=== PATIENT | female | born 1950 | race Caucasian/White ===

== ENCOUNTER → 2016-11-12 | Outpatient (REF) | payer OTHER | LOC: M LAB REF 16:37 | PROVIDERS: ATTEND Obstetrics & Gynecology | DX: R39.89 Other symptoms and signs involving the genitourinary system (principal); R10.31 Right lower quadrant pain ==

== ENCOUNTER → 2016-12-16 | Outpatient (CLI) | payer OTHER, BC ==
[2016-12-16 09:31] LABS: MEAN CORPUSCULAR HEMOGLOBIN 31.4 pg (27.0-33.0); MEAN CORPUSCULAR HGB CONC 33.3 g/dl (32.0-36.5); MEAN CORPUSCULAR VOLUME 94.3 fl (80.0-96.0); WHITE BLOOD COUNT 2.6 K/mm3 (4.0-10.0)
[2016-12-16 09:49] LABS: ALBUMIN 3.9 GM/DL (3.2-5.2); ALBUMIN/GLOBULIN RATIO 1.26 (1.00-1.93); ALKALINE PHOSPHATASE 53 U/L (45-117); ALT/SGPT 41 U/L (12-78); ANION GAP 9 MEQ/L (8-16); AST/SGOT 29 U/L (15-37); BILIRUBIN,TOTAL 0.5 MG/DL (0.2-1.0); BLOOD UREA NITROGEN 17 MG/DL (7-18); CALCIUM LEVEL 9.1 MG/DL (8.8-10.2); CARBON DIOXIDE LEVEL 28 MEQ/L (21-32); CHLORIDE LEVEL 108 MEQ/L (98-107); CHOLESTEROL LEVEL 212 MG/DL (<200); CREATININE FOR GFR 0.83 MG/DL (0.55-1.02); FREE T4 1.17 NG/DL (0.76-1.46); GLOMERULAR FILTRATION RATE > 60.0 (>45); GLUCOSE, FASTING 77 MG/DL (80-110); POTASSIUM SERUM 4.6 MEQ/L (3.5-5.1); SODIUM LEVEL 145 MEQ/L (136-145); TRIGLYCERIDES LEVEL 51 MG/DL (<150)
== END ==
LOC: M LAB 07:45
PROVIDERS: ATTEND Family Medicine
DX: Z00.00 Encounter for general adult medical examination without abnormal findings (principal)

== ENCOUNTER → 2018-12-24 | Outpatient (CLI) | payer MEDICARE, BC, OTHER ==
--- NOTE | 2018-12-25 09:58 | REP ---
MRI LEFT HIP: TECHNIQUE: Coronal T1, STIR through the pelvis, T2 fat sat, left hip all three planes, axial oblique proton density fat sat left hip. Visualized osseous structures demonstrate normal bone marrow signal. There is no bone marrow edema or occult fracture. There is no evidence of avascular necrosis. I do not see evidence of a labral tear. There is a moderate joint effusion. There is mild to moderate diffuse chondromalacia at the hip joint. Surrounding soft tissue structures demonstrate no abnormality. No abnormal signal is seen along the trochanters. Visualized intrapelvic structures demonstrate sigmoid diverticulosis, without definite diverticulitis. IMPRESSION: Mild to moderate chondromalacia at the hip joint with moderate joint effusion. I do not see evidence of a labral tear. No underlying osseous abnormality. Electronically Signed by Ramon Morales MD 12/27/2018 11:38 A
--- NOTE | 2018-12-25 09:59 | REP ---
MR LUMBAR SPINE WITHOUT CONTRAST: HISTORY: Left hip osteoarthritis. Decreased signal intensity on T2-weighted images is present in the lumbar intervertebral discs. The disc are decreased in height. These findings have been consistent with disc degeneration. A diffuse disc bulge is present at the L1-2 level. There is minimal compression of the thecal sac. There is hypertrophy of the posterior articulating facets. The L1 nerves exit the neural foramina without compression. A diffuse disc bulge is present at the L2-3 level. There is hypertrophy of the ligamenta flava and posterior articulating facets. There are 3 mm of grade 1 spondylolisthesis of L2 on L3. These findings produce moderate central canal stenosis. The L2 nerves exit the neural foramina without compression. A diffuse disc bulge is present at the L3-4 level. There is hypertrophy of the ligamenta flava and posterior articulating facets. These findings produce severe central canal stenosis. The L3 nerves exit the neural foramina without compression. A diffuse disc bulge is present at the L4-5 level. There is hypertrophy of the ligamenta flava and posterior articulating facets. These findings produce severe central canal stenosis. The L4 nerves exit the neural foramina without compression. A diffuse disc bulge is present at the L5-S1 level. This abuts the thecal sac. There is hypertrophy of the posterior articulating facets. The L5 nerves exit the neural foramina without compression. The conus medullaris is normal in appearance terminating at the level of the T12 vertebral body. Normal signal intensity is present in the lumbar vertebral bodies. IMPRESSION: 1. Diffuse disc bulge at the L1-2 level with minimal thecal sac compression. 2. Moderate central canal stenosis at the L2-3 level secondary to disc bulge, ligamentous and facet hypertrophy and grade 1 spondylolisthesis. 3. Severe central canal stenosis at the L3-4 level secondary to disc bulge, ligamentous and facet hypertrophy. 4. Severe central canal stenosis at the L4-5 level secondary to disc bulge, ligamentous and facet hypertrophy and grade 1 spondylolisthesis. 5. Diffuse disc bulge at the L5-S1 level. This abuts the thecal sac. Unreviewed
== END ==
LOC: M PLARAD 14:01
PROVIDERS: ATTEND Orthopaedic Surgery
DX: M16.12 Unilateral primary osteoarthritis, left hip (principal); M94.252 Chondromalacia, left hip; M51.26 Other intervertebral disc displacement, lumbar region; M51.27 Other intervertebral disc displacement, lumbosacral region

== ENCOUNTER → 2019-01-28 | Outpatient (REF) | payer MEDICARE, OTHER ==
[2019-01-28 12:16] LABS: PLATELET COUNT, AUTOMATED 266 10^3/uL (150-450)
[2019-01-28 12:29] LABS: INR 0.98; PARTIAL THROMBOPLASTIN TIME 32.3 SECONDS (25.0-38.4); PROTHROMBIN TIME 12.7 SECONDS (11.8-14.0)
== END ==
LOC: M LABDRAW1 10:13
PROVIDERS: ATTEND Physical Medicine & Rehabilitation
DX: Z01.812 Encounter for preprocedural laboratory examination (principal)

== ENCOUNTER → 2019-01-31 | Outpatient (CLI) | payer MEDICARE, BC, OTHER ==
[2019-01-31 14:54] LABS: C REACTIVE PROTEIN QUANTITATIV 0.53 MG/DL (0.00-0.30); RHEUMATOID FACTOR QUANT < 10.0 IU/ML (<15.0)
[2019-02-02 00:06] LABS: ANTINUCLEAR ANTIBODIES DIRECT Negative (Negative)
== END ==
LOC: M LAB 13:39
PROVIDERS: ATTEND Family Medicine
DX: M15.9 Polyosteoarthritis, unspecified (principal)

== ENCOUNTER → 2019-11-28 | Outpatient (REF) | payer MEDICARE, BC, OTHER | LOC: M LAB REF 19:03 | PROVIDERS: ATTEND Dermatology | DX: B35.8 Other dermatophytoses (principal) ==

== ENCOUNTER → 2019-12-19 | Outpatient (REF) | payer MEDICARE, OTHER ==
[2020-01-15 20:25] LABS: BASO % 0.8 % (0.0-1.0); EOS # 0.1 10^3/uL (0.0-0.5); EOS % 1.6 % (0.0-3.0); HEMATOCRIT 38.2 % (36.0-47.0); HEMOGLOBIN 12.4 g/dl (12.0-15.5); LYMPH # 1.6 10^3/uL (1.5-5.0); MEAN CORPUSCULAR HEMOGLOBIN 30.1 pg (27.0-33.0); MEAN CORPUSCULAR HGB CONC 32.5 g/dl (32.0-36.5); MEAN CORPUSCULAR VOLUME 92.7 fl (80.0-96.0); MONO # 0.4 10^3/uL (0.0-0.8); MONO % 8.7 % (0.0-5.0); NEUTROPHILS # 2.8 10^3/uL (1.5-8.5); NEUTROPHILS % 55.7 % (36.0-66.0); PLATELET COUNT, AUTOMATED 226 10^3/uL (150-450); RED BLOOD COUNT 4.12 10^6/uL (4.00-5.40); WHITE BLOOD COUNT 4.9 10^3/uL (4.0-10.0)
[2020-01-30 12:00] LABS: BLOOD UREA NITROGEN 17 MG/DL (7-18); CALCIUM LEVEL 8.9 MG/DL (8.8-10.2); CARBON DIOXIDE LEVEL 32 MEQ/L (21-32); CHLORIDE LEVEL 109 MEQ/L (98-107); CREATININE FOR GFR 0.92 MG/DL (0.55-1.30); GLOMERULAR FILTRATION RATE > 60.0 (>45); GLUCOSE, FASTING 97 MG/DL (70-100); POTASSIUM SERUM 4.3 MEQ/L (3.5-5.1); SODIUM LEVEL 143 MEQ/L (136-145)
== END ==
LOC: M WUC 12:59
PROVIDERS: ATTEND Internal Medicine Cardiovascular Disease
DX: I48.0 Paroxysmal atrial fibrillation (principal); I10 Essential (primary) hypertension

== ENCOUNTER → 2019-12-19 | Outpatient (REF) | payer MEDICARE, OTHER ==
[2020-01-30 12:16] LABS: BLOOD UREA NITROGEN 17 MG/DL (7-18); CALCIUM LEVEL 8.9 MG/DL (8.8-10.2); CARBON DIOXIDE LEVEL 32 MEQ/L (21-32); CHLORIDE LEVEL 109 MEQ/L (98-107); CREATININE FOR GFR 0.92 MG/DL (0.55-1.30); GLOMERULAR FILTRATION RATE > 60.0 (>45); GLUCOSE, FASTING 97 MG/DL (70-100); POTASSIUM SERUM 4.3 MEQ/L (3.5-5.1); SODIUM LEVEL 143 MEQ/L (136-145)
== END ==
LOC: M LABWUC 13:02
PROVIDERS: ATTEND Family Medicine
DX: E78.5 Hyperlipidemia, unspecified (principal)

== ENCOUNTER → 2020-01-09 | Outpatient (REF) | payer MEDICARE, OTHER | LOC: M LAB REF 12:37 | PROVIDERS: ATTEND Physician Assistant | DX: R30.0 Dysuria (principal) ==

== ENCOUNTER → 2020-10-22 | Outpatient (CLI) | payer MEDICARE, BC, OTHER ==
[2020-10-22 09:19] LABS: HEMOGLOBIN 13.8 g/dl (12.0-15.5); MEAN CORPUSCULAR HEMOGLOBIN 29.9 pg (27.0-33.0); MEAN CORPUSCULAR HGB CONC 32.1 g/dl (32.0-36.5); MEAN CORPUSCULAR VOLUME 93.1 fl (80.0-96.0); PLATELET COUNT, AUTOMATED 236 10^3/uL (150-450); RED BLOOD COUNT 4.62 10^6/uL (4.00-5.40); WHITE BLOOD COUNT 3.3 10^3/uL (4.0-10.0)
[2020-10-22 10:51] LABS: ALBUMIN 3.6 GM/DL (3.2-5.2); ALT/SGPT 28 U/L (12-78); BILIRUBIN,TOTAL 0.7 MG/DL (0.2-1.0); BLOOD UREA NITROGEN 18 MG/DL (7-18); CALCIUM LEVEL 9.3 MG/DL (8.8-10.2); CARBON DIOXIDE LEVEL 23 MEQ/L (21-32); CHLORIDE LEVEL 108 MEQ/L (98-107); CHOLESTEROL LEVEL 230 MG/DL (<200); GLOMERULAR FILTRATION RATE > 60.0 (>45); GLUCOSE, FASTING 80 MG/DL (70-100); HDL CHOLESTEROL 63 MG/DL (>40); LDL CHOLESTEROL 152 MG/DL (<100); NON-HDL-C 167 MG/DL; POTASSIUM SERUM 4.4 MEQ/L (3.5-5.1); SODIUM LEVEL 143 MEQ/L (136-145); TOTAL PROTEIN 7.2 GM/DL (6.4-8.2); TRIGLYCERIDES LEVEL 77 MG/DL (<150)
== END ==
LOC: M LAB 08:42
PROVIDERS: ATTEND Family Medicine
DX: E78.5 Hyperlipidemia, unspecified (principal); R53.81 Other malaise

== ENCOUNTER → 2021-01-29 | Outpatient (CLI) | payer MEDICARE, BC, OTHER ==
[2021-01-29 10:31] LABS: ALBUMIN 3.7 GM/DL (3.2-5.2); ALT/SGPT 36 U/L (12-78); BILIRUBIN,TOTAL 0.5 MG/DL (0.2-1.0); BLOOD UREA NITROGEN 17 MG/DL (7-18); CALCIUM LEVEL 9.2 MG/DL (8.8-10.2); CARBON DIOXIDE LEVEL 31 MEQ/L (21-32); CHLORIDE LEVEL 110 MEQ/L (98-107); CHOLESTEROL LEVEL 157 MG/DL (<200); CHOLESTEROL RISK RATIO 2.308 (<5); CREATININE FOR GFR 0.81 MG/DL (0.55-1.30); GLOMERULAR FILTRATION RATE > 60.0 (>45); GLUCOSE, FASTING 83 MG/DL (70-100); HDL CHOLESTEROL 68 MG/DL (>40); LDL CHOLESTEROL 76 MG/DL (<100); NON-HDL-C 89 MG/DL; POTASSIUM SERUM 4.9 MEQ/L (3.5-5.1); SODIUM LEVEL 143 MEQ/L (136-145); TOTAL PROTEIN 7.1 GM/DL (6.4-8.2); TRIGLYCERIDES LEVEL 66 MG/DL (<150)
== END ==
LOC: M LAB 09:15
PROVIDERS: ATTEND Family Medicine
DX: E78.5 Hyperlipidemia, unspecified (principal)

== ENCOUNTER → 2021-03-01 | Outpatient (CLI) | payer MEDICARE, BC, OTHER ==
--- NOTE | 2021-03-01 14:51 | REP ---
INDICATION: I65.23 OCCLUSION / STENOSIS MORE CAROTID COMPARISON: None. TECHNIQUE: Morales scale and color Doppler evaluation using linear high frequency transducer Findings: FINDINGS: Two-dimensional morales scale and color images demonstrate mild mixed atheromatous plaquing with normal laminar flow and no appreciable narrowing. Color Doppler interrogation demonstrates normal arterial wave patterns and velocities with no significant spectral broadening. Normal flow direction is appreciated in the bilateral vertebral arteries. ICA peak systolic velocity: Right 92.1 cm/s; Left 74.5 cm/s ICA diastolic velocity: Right 32.0 cm/s; Left 26.0 cm/s ECA peak systolic velocity: Right 77.4 cm/s; Left 94.6 cm/s CCA peak systolic velocity: Right 95.1 cm/s; Left 113.1 cm/s ICA/CCA ratio: Right 0.97 cm/s; Left 0.66 cm/s IMPRESSION: No hemodynamically significant areas of narrowing or stenosis appreciated. Based on set standards narrowing falls within the less than 50% range. <Electronically signed by Gen Brewer > 03/01/21 [id number]
== END ==
LOC: M RAD 13:44
PROVIDERS: ATTEND Internal Medicine Cardiovascular Disease
DX: I65.23 Occlusion and stenosis of bilateral carotid arteries (principal)

== ENCOUNTER → 2022-02-28 | Outpatient (CLI) | payer MEDICARE, BC, OTHER ==
[2022-02-28 10:04] LABS: HEMATOCRIT 41.9 % (36.0-47.0); HEMOGLOBIN 13.6 g/dl (12.0-15.5); MEAN CORPUSCULAR HEMOGLOBIN 30.2 pg (27.0-33.0); MEAN CORPUSCULAR HGB CONC 32.5 g/dl (32.0-36.5); MEAN CORPUSCULAR VOLUME 92.9 fl (80.0-96.0); PLATELET COUNT, AUTOMATED 220 10^3/uL (150-450); RED BLOOD COUNT 4.51 10^6/uL (4.00-5.40); WHITE BLOOD COUNT 3.5 10^3/uL (4.0-10.0)
[2022-02-28 10:44] LABS: ALBUMIN 3.9 GM/DL (3.2-5.2); ALT/SGPT 28 U/L (12-78); BILIRUBIN,TOTAL 0.9 MG/DL (0.2-1.0); BLOOD UREA NITROGEN 20 MG/DL (7-18); CALCIUM LEVEL 9.3 MG/DL (8.8-10.2); CARBON DIOXIDE LEVEL 29 MEQ/L (21-32); CHLORIDE LEVEL 102 MEQ/L (98-107); CHOLESTEROL LEVEL 242 MG/DL (<200); CHOLESTEROL RISK RATIO 3.361 (<5); CREATININE FOR GFR 0.85 MG/DL (0.55-1.30); GLOMERULAR FILTRATION RATE > 60.0 (>39); GLUCOSE, FASTING 73 MG/DL (70-100); HDL CHOLESTEROL 72 MG/DL (>40); LDL CHOLESTEROL 159 MG/DL (<100); NON-HDL-C 170 MG/DL; POTASSIUM SERUM 4.4 MEQ/L (3.5-5.1); SODIUM LEVEL 135 MEQ/L (136-145); TOTAL PROTEIN 7.3 GM/DL (6.4-8.2); TRIGLYCERIDES LEVEL 57 MG/DL (<150)
== END ==
LOC: M LAB 08:59
PROVIDERS: ATTEND Family Medicine
DX: E78.5 Hyperlipidemia, unspecified (principal)

== ENCOUNTER → 2022-10-10 | Outpatient (CLI) | payer MEDICARE, BC, OTHER | LOC: M PLAIMG 13:50 | PROVIDERS: ATTEND Physician Assistant Surgical | DX: M19.012 Primary osteoarthritis, left shoulder (principal) ==

== ENCOUNTER → 2023-02-18 | Outpatient (CLI) | payer MEDICARE, BC, OTHER | LOC: M WHC 13:46 | PROVIDERS: ATTEND Family Medicine | DX: Z13.820 Encounter for screening for osteoporosis (principal); M85.89 Other specified disorders of bone density and structure, multiple sites ==

== ENCOUNTER → 2023-03-05 | Outpatient (CLI) | payer MEDICARE, BC, OTHER ==
[2023-03-05 10:04] LABS: HEMATOCRIT 40.7 % (36.0-47.0); HEMOGLOBIN 13.2 g/dl (12.0-15.5); MEAN CORPUSCULAR HEMOGLOBIN 30.1 pg (27.0-33.0); MEAN CORPUSCULAR HGB CONC 32.4 g/dl (32.0-36.5); MEAN CORPUSCULAR VOLUME 92.9 fl (80.0-96.0); PLATELET COUNT, AUTOMATED 241 10^3/uL (150-450); RED BLOOD COUNT 4.38 10^6/uL (4.00-5.40); WHITE BLOOD COUNT 3.6 10^3/uL (4.0-10.0)
== END ==
LOC: M LAB 09:11
PROVIDERS: ATTEND Family Medicine
DX: R53.81 Other malaise (principal); E78.5 Hyperlipidemia, unspecified

== ENCOUNTER → 2023-04-22 | Outpatient (CLI) | payer MEDICARE, BC, OTHER | LOC: M LAB 12:55 | PROVIDERS: ATTEND Family Medicine | DX: E03.9 Hypothyroidism, unspecified (principal) ==

== ENCOUNTER → 2023-06-19 | Outpatient (CLI) | payer MEDICARE, BC, OTHER ==
[2023-06-19 13:29] LABS: BASO # 0.1 10^3/uL (0.0-0.2); BASO % 1.4 % (0.0-1.0); EOS # 0.1 10^3/uL (0.0-0.5); EOS % 3.7 % (0.0-3.0); HEMATOCRIT 41.4 % (36.0-47.0); HEMOGLOBIN 13.7 g/dl (12.0-15.5); LYMPH # 1.6 10^3/uL (1.5-5.0); LYMPH % 45.2 % (24.0-44.0); MEAN CORPUSCULAR HEMOGLOBIN 30.6 pg (27.0-33.0); MEAN CORPUSCULAR HGB CONC 33.1 g/dl (32.0-36.5); MEAN CORPUSCULAR VOLUME 92.6 fl (80.0-96.0); MONO # 0.4 10^3/uL (0.0-0.8); MONO % 10.2 % (2.0-8.0); NEUTROPHILS # 1.4 10^3/uL (1.5-8.5); NEUTROPHILS % 39.5 % (36.0-66.0); PLATELET COUNT, AUTOMATED 222 10^3/uL (150-450); RED BLOOD COUNT 4.47 10^6/uL (4.00-5.40); WHITE BLOOD COUNT 3.5 10^3/uL (4.0-10.0)
== END ==
LOC: M LAB 12:48
PROVIDERS: ATTEND Nurse Practitioner
DX: I48.0 Paroxysmal atrial fibrillation (principal); Z79.01 Long term (current) use of anticoagulants; I10 Essential (primary) hypertension

== ENCOUNTER → 2023-07-15 | Outpatient (CLI) | payer MEDICARE, BC ==
[2023-07-15 10:46] LABS: ALBUMIN 3.7 G/DL (3.2-5.2); ALKALINE PHOSPHATASE 61 U/L (46-116); ALT/SGPT 22 U/L (7.0-40); AST/SGOT 22 U/L (<34); BILIRUBIN,TOTAL 0.6 MG/DL (0.3-1.2); BLOOD UREA NITROGEN 20 MG/DL (9-23); CALCIUM LEVEL 9.1 MG/DL (8.3-10.6); CARBON DIOXIDE LEVEL 28 MMOL/L (20-31); CHLORIDE LEVEL 108 MMOL/L (98-107); CHOLESTEROL LEVEL 221 MG/DL (<200); CHOLESTEROL RISK RATIO 4.04 (<5); CREATININE FOR GFR 0.78 MG/DL (0.55-1.30); GLOMERULAR FILTRATION RATE > 60.0 (>39); GLUCOSE, FASTING 83 MG/DL (74-106); HDL CHOLESTEROL 54.7 MG/DL (>40); LDL CHOLESTEROL 150.5 MG/DL (<100); NON-HDL-C 166.3 MG/DL; POTASSIUM SERUM 4.3 MMOL/L (3.5-5.1); SODIUM LEVEL 142 MMOL/L (136-145); TOTAL PROTEIN 6.7 G/DL (5.7-8.2); TRIGLYCERIDES LEVEL 79 MG/DL (<150)
[2023-07-15 10:47] LABS: THYROID STIMULATING HORMONE 4.677 uIU/ML (0.55-4.78)
== END ==
LOC: M LAB 09:48
PROVIDERS: ATTEND Family Medicine
DX: E78.5 Hyperlipidemia, unspecified (principal)

== ENCOUNTER → 2024-03-31 | Outpatient (CLI) | payer MEDICARE, BC ==
[2024-03-31 09:26] LABS: HEMATOCRIT 41.7 % (36.0-47.0); HEMOGLOBIN 13.5 g/dl (12.0-15.5); MEAN CORPUSCULAR HEMOGLOBIN 30.3 pg (27.0-33.0); MEAN CORPUSCULAR HGB CONC 32.4 g/dl (32.0-36.5); MEAN CORPUSCULAR VOLUME 93.5 fl (80.0-96.0); PLATELET COUNT, AUTOMATED 224 10^3/uL (150-450); RED BLOOD COUNT 4.46 10^6/uL (4.00-5.40); WHITE BLOOD COUNT 3.4 10^3/uL (4.0-10.0)
[2024-03-31 09:52] LABS: ALBUMIN 3.8 G/DL (3.2-5.2); ALKALINE PHOSPHATASE 58 U/L (35-104); ALT/SGPT 19 U/L (7.0-40); AST/SGOT 17 U/L (<34); BILIRUBIN,TOTAL 0.6 MG/DL (0.3-1.2); BLOOD UREA NITROGEN 18 MG/DL (9-23); CALCIUM LEVEL 9.7 MG/DL (8.3-10.6); CARBON DIOXIDE LEVEL 31 MMOL/L (20-31); CHLORIDE LEVEL 109 MMOL/L (98-107); CHOLESTEROL LEVEL 237 MG/DL (<200); CREATININE FOR GFR 0.82 MG/DL (0.55-1.30); GLOMERULAR FILTRATION RATE > 60.0 (>39); GLUCOSE, FASTING 84 MG/DL (74-106); HDL CHOLESTEROL 56.3 MG/DL (>40); LDL CHOLESTEROL 156.9 MG/DL (<100); NON-HDL-C 180.7 MG/DL; POTASSIUM SERUM 4.8 MMOL/L (3.5-5.1); SODIUM LEVEL 144 MMOL/L (136-145); TRIGLYCERIDES LEVEL 119 MG/DL (<150)
[2024-03-31 09:54] LABS: TOTAL 25(OH) VITAMIN D 42.4 NG/ML (20.0-100.0)
== END ==
LOC: M LAB 08:13
PROVIDERS: ATTEND Family Medicine
DX: R53.81 Other malaise (principal); Z13.6 Encounter for screening for cardiovascular disorders

== ENCOUNTER → 2024-09-02 | Outpatient (CLI) | payer MEDICARE, BC ==
[2024-09-02 12:19] LABS: ALBUMIN 3.6 G/DL (3.2-5.2); BILIRUBIN,TOTAL 0.6 MG/DL (0.3-1.2); CHOLESTEROL RISK RATIO 3.83 (<5); CREATININE FOR GFR 0.84 MG/DL (0.55-1.30); GLOMERULAR FILTRATION RATE 73.8 (>39); HDL CHOLESTEROL 56.6 MG/DL (>40); LDL CHOLESTEROL 143.6 MG/DL (<100); NON-HDL-C 160.4 MG/DL; POTASSIUM SERUM 4.3 MMOL/L (3.5-5.1); TOTAL PROTEIN 6.8 G/DL (5.7-8.2)
[2024-09-02 12:22] LABS: THYROID STIMULATING HORMONE 2.006 uIU/ML (0.55-4.78)
== END ==
LOC: M LAB 10:37
PROVIDERS: ATTEND Family Medicine
DX: E03.9 Hypothyroidism, unspecified (principal)

== ENCOUNTER 2024-09-27 06:48 | Emergency (ER) | payer MEDICARE, BC ==
[~2024-09-27] VITALS: Ht 160 cm; Wt 76.3 kg
[2024-09-27 07:14] LABS: KETONE, URINE MANUAL REFLEX 1+ mg/dL (NEGATIVE); PROTEIN, URINE MANUAL REFLEX TRACE mg/dL (NEGATIVE); UROBILINOGEN, UA MANUAL REFLEX NORMAL (NORMAL)
[2024-09-27 07:15] LABS: NITRITE, URINE MANUAL RFX NEGATIVE (NEGATIVE)
[2024-09-27 07:19] LABS: HYALINE CAST, URINE RFX NONE SEEN /lpf (0-1); RBC, URINE MAN REFLEX 0-1 /hpf (0-3); SQUAMOUS EPITHELIAL URINE RFX NONE SEEN /hpf (SMALL AMT); WBC, URINE MAN RFX 0-1 /hpf (0-3)
[2024-09-27 07:20] LABS: MICROSCOPIC EXAM RFX UNSPUN
[2024-09-27 07:26] LABS: BASO % 0.9 % (0.0-1.0); EOS # 0.2 10^3/uL (0.0-0.5); EOS % 3.8 % (0.0-3.0); HEMATOCRIT 41.9 % (36.0-47.0); HEMOGLOBIN 13.7 g/dl (12.0-15.5); LYMPH # 1.3 10^3/uL (1.5-5.0); LYMPH % 29.5 % (24.0-44.0); MEAN CORPUSCULAR HEMOGLOBIN 29.9 pg (27.0-33.0); MEAN CORPUSCULAR HGB CONC 32.7 g/dl (32.0-36.5); MEAN CORPUSCULAR VOLUME 91.5 fl (80.0-96.0); MONO # 0.3 10^3/uL (0.0-0.8); MONO % 7.3 % (2.0-8.0); NEUTROPHILS # 2.6 10^3/uL (1.5-8.5); NEUTROPHILS % 58.3 % (36.0-66.0); PLATELET COUNT, AUTOMATED 251 10^3/uL (150-450); RED BLOOD COUNT 4.58 10^6/uL (4.00-5.40); WHITE BLOOD COUNT 4.5 10^3/uL (4.0-10.0)
[2024-09-27 07:51] LABS: ALBUMIN 3.9 G/DL (3.2-5.2); BILIRUBIN,DIRECT 0.2 MG/DL (<0.4); BILIRUBIN,TOTAL 0.6 MG/DL (0.3-1.2); CALCIUM LEVEL 8.9 MG/DL (8.3-10.6); CREATININE FOR GFR 0.83 MG/DL (0.55-1.30); GLOMERULAR FILTRATION RATE 74.9 (>39); POTASSIUM SERUM 4.7 MMOL/L (3.5-5.1); TOTAL PROTEIN 7.2 G/DL (5.7-8.2)
[2024-09-27] MEDS: ONDANSETRON 4MG 2ML VIAL IV ONE (08:41)
[2024-09-27] MEDS: MORPHINE 2 MG/ML 1ML VIAL IV ONE (08:42)
[2024-09-27] MEDS ORDERED: COLA100C5 PO (09:24)
[2024-09-27 09:32] VITALS: BP 160/70; TEMP 97.8; O2SAT 99
[2024-09-27] MEDS: MAGNESIUM CITRATE 300ML BTL PO ONE (09:36)
== END 2024-09-27 09:38 | disposition home or self-care (01) ==
LOC: M ED 06:48
DX: R10.9 Unspecified abdominal pain (principal); I48.91 Unspecified atrial fibrillation; I10 Essential (primary) hypertension; Z88.8 Allergy status to other drugs, medicaments and biological substances
CPT/HCPCS: 74176; 80048; 80076; 81000; 81015; 83690; 85025; 87086; 96374; 96375; 99283; J2405

== ENCOUNTER 2024-12-05 11:12 | Emergency (ER) | payer MEDICARE, BC ==
[~2024-12-05] VITALS: Ht 162.6 cm; Wt 77.2 kg
[~2024-12-05 11:12] MED LIST: COLA100C5 PO
[2024-12-05] MEDS ORDERED: LEVO50TA5 (11:21)
[2024-12-05] MEDS ORDERED: LISI10TA22 (11:21)
[2024-12-05] MEDS ORDERED: ELIQ5TAB (11:21)
[2024-12-05] MEDS ORDERED: METO1TAB32 (11:21)
[2024-12-05] MEDS: LIDOCAINE 5% PATCH TD ONE (12:36)
[2024-12-05] MEDS ORDERED: PRED20TA PO (14:14)
[2024-12-05 14:19] VITALS: BP 171/79; TEMP 97.4; O2SAT 98
== END 2024-12-05 14:20 | disposition home or self-care (01) ==
LOC: M ED 11:12
DX: M50.30 Other cervical disc degeneration, unspecified cervical region (principal); R91.1 Solitary pulmonary nodule; Z88.8 Allergy status to other drugs, medicaments and biological substances; Z79.01 Long term (current) use of anticoagulants; Z79.899 Other long term (current) drug therapy; Z79.52 Long term (current) use of systemic steroids

== ENCOUNTER → 2024-12-28 | Outpatient (CLI) | payer MEDICARE, BC ==
[~2024-12-28] MED LIST changes: +ELIQ5TAB; +LEVO50TA5; +LISI10TA22; +METO1TAB32; +PRED20TA PO
== END ==
LOC: M RAD 14:25
PROVIDERS: ATTEND Family Medicine
DX: E04.2 Nontoxic multinodular goiter (principal); R91.1 Solitary pulmonary nodule; R53.81 Other malaise; R53.83 Other fatigue

== ENCOUNTER → 2024-12-29 | Outpatient (CLI) | payer MEDICARE, BC | LOC: M PLAIMG 11:59 | PROVIDERS: ATTEND Family Medicine | DX: R91.8 Other nonspecific abnormal finding of lung field (principal) ==